=== PATIENT | female | born 1955 | race Hispanic/Latino ===

== ENCOUNTER 2016-07-21 12:57 | Emergency (ER) | payer SELFPAY ==
[2016-07-21 13:03] VITALS: BP 140/89; PULSE 79; RESP 18; TEMP 98; O2SAT 100
--- NOTE | 2016-07-21 13:21 | ED PDOC ---
HPI: Trauma/Fall - HPI Time Seen by Provider: 07/21/16 13:17 Chief Complaint (Nursing): ENT Problem Chief Complaint (Provider): Nasal Injury History Per: Patient History/Exam Limitations: no limitations Onset/Duration Of Symptoms: Hrs (x1) Injury Occurred (Timing): Hours Ago: (1) Location Of Injury: Anterior: Face (nasal bridge) Associated Symptoms: denies: LOC, Other (no vomiting) Additional Complaint(s): Ulises Moore is a 60 year old female, with no pertinent past medical history , who presents to the ED on 07/21/16, accompanied by her , for the evaluation of an injury that she had sustained to her nasal bridge 1 hour prior to arrival when she had run face-first into a glass door within her hotel. Patient does report having heard a small "crack" upon impact, after which she had experienced some mild epistaxis, but otherwise denies any loss of consciousness or vomiting since incident. Patient did have her glasses on at time of injury, though they remained undamaged. Of note, patient states that she and her are supposed to be on a return flight to [place] this evening. Past Medical History Reviewed: Historical Data, Nursing Documentation, Vital Signs Vital Signs: Last Vital Signs Temp 98 F 07/21/16 12:58 Pulse 79 07/21/16 12:58 Resp 18 07/21/16 12:58 BP 140/89 07/21/16 12:58 Pulse Ox 100 07/21/16 12:58 - Medical History PMH: No Chronic Diseases - Surgical History Surgical History: No Surg Hx - Family History Family History: States: Unknown Family Hx - Living Arrangements Living Arrangements: With Family - Home Medications Home Medications: Ambulatory Orders Medication Instructions Recorded Cephalexin [cephalexin] 500 mg PO BID #14 cap 07/21/16 Ibuprofen [Motrin] 600 mg PO Q6 #20 tab 07/21/16 - Allergies Allergies/Adverse Reactions: Allergies Allergy/AdvReac Type Severity Reaction Status Date / Time No Known Allergies Allergy Verified 07/21/16 12:58 Review of Systems ENT: Positive for: Nose Pain (injury to nasal bridge) Physical Exam - Reviewed Nursing Documentation Reviewed: Yes Vital Signs Reviewed: Yes - Physical Exam Appears: Positive for: Non-toxic, No Acute Distress Head Exam: Positive for: ATRAUMATIC, NORMOCEPHALIC Skin: Positive for: Normal Color, Warm, Dry Eye Exam: Positive for: Normal appearance, EOMI, PERRL ENT: Positive for: Other (tenderness noted to right lateral aspect of nasal bridge with moderate edema and mild ecchymosis; 1cm superficial abrasion noted over nasal bridge; no evidence of septal hematoma) Neck: Positive for: Normal, Painless ROM, Supple Neurologic/Psych: Positive for: Alert, Oriented - ECG O2 Sat by Pulse Oximetry: 100 (RA) Pulse Ox Interpretation: Normal - Other Rad XR Nasal Bones X-Ray: Interpreted by Me, Viewed By Me X-Ray Interpretation: nondisplaced nasal bone fracture Medical Decision Making Medical Decision Makin:17 Initial Impression: injury to nasal bridge; will assess for fracture Patient has declined offered analgesics. Initial Plan: * XR Nasal Bones * Reevaluation 14:10 XR shows nondisplaced nasal bone fracture, as read by JAMES. Abrasion on nasal bridge cleansed with sterile water, after which dermabond was subsequently applied to ensure wound edges stay well approximated. 14:18 Upon provider reevaluation patient is feeling better, is medically stable, and requires no further treatment in the ED at this time. Patient will be discharged home with instructions to take over the counter NSAIDs as needed for relief of pain. Counseling was provided and all questions were answered regarding diagnosis and need for follow up with her PMD back home. There is agreement to discharge plan. Return if symptoms persist or worsen. Clinical Impression: nasal bone fracture RX: Keflex and Motrin Scribe Attestation: Documented by Bailey Ash, acting as a scribe for Danae Luciano PA-C. Provider Scribe Attestation: All medical record entries made by the Scribe were at my direction and personally dictated by me. I have reviewed the chart and agree that the record accurately reflects my personal performance of the history, physical exam, medical decision making, and the department course for this patient. I have also personally directed, reviewed, and agree with the discharge instructions and disposition. Disposition - Clinical Impression Clinical Impression: Nasal bone fracture, Laceration - Patient ED Disposition Is Patient to be Admitted: No Counseled Patient/Family Regarding: Studies Performed, Diagnosis, Need For Followup - Disposition Disposition: Routine/Home Disposition Time: 14:18 Condition: STABLE Prescriptions: Cephalexin [cephalexin] 500 mg PO BID #14 cap Ibuprofen [Motrin] 600 mg PO Q6 #20 tab Instructions: Nasal Fracture (ED), Skin Adhesive Care (ED)
--- NOTE | 2016-07-21 14:07 | RAD ---
PROCEDURE: Radiographs of Nasal Bones HISTORY: Walked into glass door COMPARISON: None available. TECHNIQUE: Frontal and lateral radiographs of the nasal bones. FINDINGS: No fracture of nasal bones visualized. No destructive lesion. IMPRESSION: No acute fracture.
== END 2016-07-21 14:46 | disposition home or self-care (01) ==
LOC: H.ER 12:57
DX: S01.81XA Laceration without foreign body of other part of head, initial encounter (principal); S02.2XXA Fracture of nasal bones, initial encounter for closed fracture; W22.09XA Striking against other stationary object, initial encounter; Y92.89 Other specified places as the place of occurrence of the external cause